=== PATIENT | female | born 1955 | race Caucasian/White ===

== ENCOUNTER 2019-03-19 21:31 | Inpatient (IN) | payer OTHER ==
[~2019-03-19] VITALS: Ht 160 cm; Wt 74.8 kg
[2019-03-20 00:10] VITALS: BP 127/75
[2019-03-20 00:39] VITALS: BP 127/75
--- NOTE | 2019-03-20 00:39 | NUR ---
STITCH WELDER ADMITTING OPENING NOTES RECEIVED PATIENT FROM [facility] DIRECT ADMIT, TRANSFERRED SAFELY TO BED FROM [facility], AWAKE ALERT AND ORIENTED X, 4 [employer]URIT[employer] SPEAKER, ON 2 L VIA NC, RESPIRATIONS EVEN AND UNLABORED WITH EQUAL RISE AND FALL OF CHEST, STATES PAIN 6/10 BILATERAL HIPS AND HEADACHE PRESSURE LIKE PAIN , PLACED ON TELE MONITOR NOTED SB 45-58. PER REPORT SB HAS BEEN HER BASELINE, NO DISTRESS PRESENT AT THIS TIME, IV SITE TO LEFT AC #20G INTACT AND PATENT, NO REDNESS, NO INFILTRATION PRESENT, BELONGINGS LIST DONE, SKIN ASSESSED INTACT NO WOUNDS, NOTED DRY SMALL SCABS DRY CLEAN TO BLE PATIENT STATES FROM SCRATCHING, MED RECON IN PLACE, STATES UNSURE IF LOSARTAN OR HYDROCHLOROTHIAZIDE POSSIBLY CAUSED FEELINGS OF DIZZYNESS AND HEADACHE, BUT IS NOT TAKING MEDICATION AT THIS TIME , PATIENT TAKES ADVAIR FOR ASTHMA BID 250MG MD MADE AWARE, WILL AWAIT FURTHER ORDERS. AT THIS TIME ALL NEEDS ATTENDED REMAINS COMFORTABLE VS WNL WILL CONTINUE TO MONITOR.
[2019-03-20] MEDS ORDERED: LOSA50TA39 PO (00:51)
[2019-03-20] MEDS ORDERED: FLUT1DIS INH (00:51)
[2019-03-20] MEDS ORDERED: HYDR25TA4 PO (00:51)
[2019-03-20] MEDS ORDERED: HYDROCODONE/APAP 5/325MG 1 EACH TABLET PO PRN (01:30)
[2019-03-20] MEDS ORDERED: Z GUARD REMEDY 2 OZ OINT TP PRN (01:30)
[2019-03-20] MEDS ORDERED: ONDANSETRON HCL/PF 4 MG/2 ML VIAL IVP PRN (01:30)
[2019-03-20] MEDS ORDERED: MAG HYDROX/AL HYDROX/SIMETH 30 ML UDC PO PRN (01:30)
[2019-03-20] MEDS ORDERED: MAGNESIUM HYDROXIDE 30 ML UDC PO PRN (01:30)
[2019-03-20] MEDS ORDERED: hydrALAZINE HCL 25 MG TABLET PO PRN (01:30)
[2019-03-20] MEDS ORDERED: MORPHINE SULFATE INJ 2 MG/ML DISP.SYRIN IV PRN (01:30)
[2019-03-20] MEDS ORDERED: ZOLPIDEM TARTRATE 5 MG TABLET PO PRN (01:30)
[2019-03-20] MEDS ORDERED: ACETAMINOPHEN 325 MG TABLET PO PRN (01:30)
[2019-03-20 02:07] LABS: BASOPHILS % (AUTO) 0.3 % (0.0-2.0); EOSINOPHILS % (AUTO) 0.3 % (0.0-6.0); HEMATOCRIT 40 % (33-45); HEMOGLOBIN 13.5 g/dL (11.5-14.8); LYMPHOCYTES # (AUTO) 2.1 /CMM (0.8-4.8); LYMPHOCYTES % (AUTO) 15.8 % (20.0-44.0); MEAN CORPUSCULAR HGB CONC 34 g/dl (31.0-36.0); MEAN CORPUSCULAR VOLUME 94 fL (82-100); MONOCYTES # (AUTO) 0.9 /CMM (0.1-1.30); MONOCYTES % (AUTO) 7.3 % (2.0-12.0); NEUTROPHILS % (AUTO) 76.3 % (43.0-81.0); PLATELET COUNT (AUTO) 239 /CMM (150-450); RED BLOOD CELL COUNT(AUTO) 4.27 MIL/uL (4.0-5.2); WHITE BLOOD COUNT (AUTO) 13.1 K/uL (4.3-11.0)
[2019-03-20 02:23] LABS: ALBUMIN 3.5 g/dL (3.4-5.0); BILIRUBIN,TOTAL 0.6 mg/dL (0.2-1.0); CALCIUM, SERUM 8.6 mg/dL (8.5-10.1); CREATININE 0.9 mg/dL (0.6-1.3); MAGNESIUM 1.8 mg/dL (1.8-2.4); PHOSPHORUS 4.3 mg/dL (2.5-4.9); POTASSIUM 3.3 mmol/L (3.5-5.1); TOTAL PROTEIN, SERUM 6.9 g/dL (6.4-8.2)
[2019-03-20 02:29] LABS: THYROID STIMULATING HORMONE 0.426 uIU/mL (0.358-3.74)
[2019-03-20 04:00] VITALS: BP 119/71
--- NOTE | 2019-03-20 04:21 | NUR ---
RN MS NOTES LABS ORDERED RESULTED MD MADE AWARE, POTASSIUM NOTED 3.3 L NEW ORDER PER MD KDUR 20MG PO ONCE. VERIFIED AND READ BACK ,NOTED AND CARRIED OUT.
[2019-03-20] MEDS ORDERED: POTASSIUM CHLORIDE 20 MEQ TAB.PRT.SR PO ONE ×2 (04:30→12:00)
--- NOTE | 2019-03-20 07:00 | NUR ---
DIE SINKER CLOSING NOTES PATIENT AWAKE ALERT AND ORIENTED X 4 BANGLADESHI SPEAKER, ON 2 L VIA NC, RESPIRATIONS EVEN AND UNLABORED WITH EQUAL RISE AND FALL OF CHEST, DENIES PAIN AT THIS TIME, ON TELE MONITOR NOTED SB 45-58, NO DISTRESS PRESENT AT THIS TIME, IV SITE TO LEFT AC #20G INTACT AND PATENT, NO REDNESS, NO INFILTRATION PRESENT, SKIN ASSESSED INTACT NO WOUNDS,AT THIS TIME ALL NEEDS ATTENDED REMAINS COMFORTABLE VS WNL WILL CONTINUE TO MONITOR AND ENDORSE TO NEXT SHIFT.
[2019-03-20 08:00] VITALS: BP 90/45
[2019-03-20] MEDS ORDERED: FLUTICASONE/SALMETEROL DISKUS IH SCH (09:00)
[2019-03-20] MEDS: FLUTICASONE/VILANTEROL 1 EACH BLST.W.DEV IH SCH (09:59)
[2019-03-20 16:00] VITALS: BP 118/64
--- NOTE | 2019-03-20 18:00 | NUR ---
M/S RN NOTES PATIENT AWAKE IN BED, NO RESPIRATORY DISTRESS, NO C/O PAIN AT THIS TIME. PATIENT'S NEEDS ATTENDED. BED ON LOWEST LOCKED POSITION, CALL LIGHT WITHIN REACH. WILL ENDORSE TO ONCOMING NURSE.
--- NOTE | 2019-03-20 19:30 | NUR ---
MS RN NOTE: PATIENT RESTING IN BED, NO ACUTE DISTRESS NOTED. BREATHING EVEN AND UNLABORED, NO SOB NOTED. IV TO LAC IN PLACE. BED LOCKED AND IN LOWEST POSITION, CALL LIGHT IN REACH. WILL CONTINUE TO MONITOR.
[2019-03-20 20:00] VITALS: BP 119/67
--- NOTE | 2019-03-21 03:15 | NUR ---
MS RN NOTE: PATIENT SLEEPING IN BED, NO ACUTE DISTRESS NOTED. BREATHING EVEN AND UNLABORED, NO SOB NOTED. BED LOCKED AND IN LOWEST POSITION, CALL LIGHT IN REACH. WILL CONTINUE TO MONITOR.
--- NOTE | 2019-03-21 06:10 | NUR ---
MS RN NOTE: PATIENT RESTING IN BED, NO ACUTE DISTRESS NOTED. BREATHING EVEN AND UNLABORED, NO SOB NOTED. IV TO LAC IN PLACE. BED LOCKED AND IN LOWEST POSITION, CALL LIGHT IN REACH. WILL ENDORSE TO DAY NURSER TO CONTINUE WITH PLAN OF CARE.
[2019-03-21 06:21] LABS: CALCIUM, SERUM 8.4 mg/dL (8.5-10.1); CREATININE 0.7 mg/dL (0.6-1.3); PHOSPHORUS 3.8 mg/dL (2.5-4.9)
[2019-03-21 06:35] LABS: BASOPHILS # (AUTO) 0.1 /CMM (0.0-0.2); BASOPHILS % (AUTO) 1.1 % (0.0-2.0); EOSINOPHILS % (AUTO) 3.5 % (0.0-6.0); HEMATOCRIT 40 % (33-45); HEMOGLOBIN 13.5 g/dL (11.5-14.8); LYMPHOCYTES # (AUTO) 2.5 /CMM (0.8-4.8); LYMPHOCYTES % (AUTO) 34.8 % (20.0-44.0); MEAN CORPUSCULAR HGB CONC 34 g/dl (31.0-36.0); MEAN CORPUSCULAR VOLUME 95 fL (82-100); MONOCYTES # (AUTO) 0.6 /CMM (0.1-1.30); MONOCYTES % (AUTO) 8.2 % (2.0-12.0); NEUTROPHILS # (AUTO) 3.7 /CMM (1.8-8.9); NEUTROPHILS % (AUTO) 52.4 % (43.0-81.0); PLATELET COUNT (AUTO) 215 /CMM (150-450); RED BLOOD CELL COUNT(AUTO) 4.22 MIL/uL (4.0-5.2); WHITE BLOOD COUNT (AUTO) 7.1 K/uL (4.3-11.0)
--- NOTE | 2019-03-21 06:40 | NUR ---
MS RN NOTE: PATIENT COMPLAINS OF HEADACHE 5/10, NORCO 5/325MG 1 TAB ORAL GIVEN PER MD ORDER.
[2019-03-21 07:26] LABS: APPEARANCE,URINE SL CLOUDY (CLEAR); BILIRUBIN,URINE NEGATIVE (NEGATIVE); BLOOD, URINE 1+ Ery/uL (NEGATIVE); COLOR,URINE YELLOW (YELLOW); KETONES,URINE NEGATIVE (NEGATIVE); LEUKOCYTE ESTERASE ,URINE 2+ (NEGATIVE); NITRITE, URINE POSITIVE (NEGATIVE); PH,URINE 5.5 (5.0-8.0); PROTEIN,URINE NEGATIVE (NEGATIVE); UGLUCOSE NEGATIVE (NEGATIVE); UROBILINOGEN,URINE 0.2 EU/dL (0.2)
[2019-03-21 07:32] LABS: BACTERIA,URINE Many /HPF (None Seen); WBC,URINE 21-50 /HPF (0-3)
[2019-03-21 07:33] LABS: SQUAMOUS EPITHELIAL CELL,UR Few /HPF (None Seen)
--- NOTE | 2019-03-21 07:33 | NUR ---
MS RN OPENING NOTES Received patient on room air, no sob noted, patient denies pain at this time. No N/V stated by patient, LAC #20 remains intact and unobstructed. Bed at the lowest setting, call light within reach, side rails up x2.
[2019-03-21 08:00] VITALS: BP 129/65
[2019-03-21 08:14] VITALS: BP 129/65
[2019-03-21] MEDS: FLUTICASONE/VILANTEROL 1 EACH BLST.W.DEV IH SCH (08:14)
[2019-03-21] MEDS ORDERED: LOSARTAN POTASSIUM 50 MG TABLET PO SCH (09:00)
[2019-03-21] MEDS ORDERED: HYDROCHLOROTHIAZIDE 25 MG TABLET PO SCH (09:00)
--- NOTE | 2019-03-21 11:12 | NUR ---
RN MS NOTES DISCHARGE Patient discharged around this time. No sob noted, vital signs stable. Patient has all her discharge papers, with no further questions from patient. Patient has all her belongings. Signed all the paperwork and have copies in the chart. patient picked up from the hospital by her .
== END 2019-03-21 11:15 | disposition home or self-care (01) | DRG 248 ==
LOC: TELE 03-20 00:03 → MED 03-20 08:28
PROVIDERS: ADMIT Internal Medicine; ATTEND Internal Medicine
DX: B69.0 Cysticercosis of central nervous system (principal); N17.0 Acute kidney failure with tubular necrosis; I10 Essential (primary) hypertension; R51 Headache; Z79.899 Other long term (current) drug therapy; J45.909 Unspecified asthma, uncomplicated; D72.829 Elevated white blood cell count, unspecified; E87.6 Hypokalemia; E66.9 Obesity, unspecified; Z68.29 Body mass index [BMI] 29.0-29.9, adult
CPT/HCPCS: 36415; 72190-TC; 80048-TC; 80053-TC; 80061-TC; 81000-TC; 83735-TC; 84100-TC; 84443-TC; 85025-TC; 87081-TC; 87086-TC; 87186-TC; 97116-TC; 97530-TC; G0378; J2270